=== PATIENT | male | born 1960 | race Caucasian/White ===

== ENCOUNTER 2023-09-15 15:21 | Emergency (ER) | payer OTHER, SELFPAY ==
[2023-09-15 15:24] VITALS: BP 180/87; PULSE 68; RESP 20; TEMP 35.8; O2SAT 98; BMI 42.5
--- NOTE | 2023-09-15 15:52 | CT_ITS ---
INDICATION: right flank pain EXAMINATION: CT Abdomen And Pelvis W/O Contrast Injection TECHNIQUE: Helically acquired images were obtained of the abdomen and pelvis without the use of IV contrast. A radiation dose optimization technique was used for this scan. Oral contrast: None. COMPARISON: None FINDINGS: Evaluation of the solid organs and vascular structures is limited without intravenous contrast. Visualized lung bases: Unremarkable Liver: Unremarkable Gallbladder: Unremarkable Spleen: Unremarkable Pancreas: Unremarkable Adrenal Glands: Unremarkable Kidneys: 4.2 cm simple cyst in the right upper renal pole. Status post left nephrectomy. Vasculature: Mild scattered aortoiliac atherosclerotic calcifications. GI Tract: Unremarkable Lymphadenopathy: None Peritoneum: No ascites. Bladder: Collapsed. Reproductive organs: Unremarkable Bones/Soft tissues: Mild scattered degenerative changes of the visualized spine. Moderately sized fat-containing periumbilical hernia. CT/Abdomen/Pelvis without Cont IMPRESSION: No acute abnormalities in the abdomen or pelvis. Specifically, no evidence of hydronephrosis or renal/ureteral stones. Moderately sized fat-containing periumbilical hernia. Status post left nephrectomy. Electronically Signed: Yash Echols MD at 18:02 EDT ,
--- NOTE | 2023-09-15 15:53 | EDS_ITS ---
HPI History of Present Illness Chief Complaint: Flank Pain Detail of Chief Complaint: Right flank pain Informant: patient Onset/Context/Timing Current Severity: 10/12 Narrative Narrative: Patient presents to the emergency department with complaint of right flank pain. Patient is visiting here from [place]. States that he has had right flank pain for about a week. Currently rates his pain an 8 out of 10. He describes some nausea but no vomiting. Denies fever. He had some mild dysuria with some dark urine. Patient states that he has had frequent kidney stones and had to have a left nephrectomy secondary to the kidney stones. Patient also states he cannot take Motrin or Toradol because of the nephrectomy. Patient states that the pain starts in his mid right back and radiates to the front of the abdomen. [facility] Medical History (Updated 09/15/23 @ 18:[address] Pantera Trejo, ) Anxiety Hypertension Dysplasia of one kidney Home Medications ?Medication ?Instructions ?Recorded ?Last Taken ?Type atenolol 50 mg tablet 50 mg PO DAILY 09/21/15 Unknown History hydrocodone-acetaminophen 5-325mg 1 - 2 tab PO Q4H PRN PRN Pain ##12 09/21/15 Unknown Rx 5mg-325mg naproxen 500 mg tablet 500 mg PO BID PRN #20 tabs 09/21/15 Unknown Rx cyclobenzaprine 10 mg tablet 10 mg PO TID PRN Muscle Spasm #20 09/15/23 Unknown Rx TABLETS hydrocodone-acetaminophen 5-325mg 1 tab PO Q4H PRN PRN Pain 2 days 09/15/23 Unknown Rx 5mg-325mg #10 TABLETS Allergy/AdvReac Type Severity Reaction Status Date / Time ketorolac (From Toradol) AdvReac Other Verified 09/15/23 15:23 Social History Smoking Status: Current every day smoker tobacco type: cigarettes ROS ROS ED Review of Systems ROS Unobtainable: other Constitutional Constitutional ED: Reports lethargy; Denies chills, fever(s), sweats or weight loss Eyes Eyes: Denies blurry vision, change in vision or diplopia ENT ENT ED: Denies rhinorrhea or sore throat Cardiovascular Cardiovascular: Denies chest pain, orthopnea or racing heartbeat Respiratory/Chest Respiratory/Chest: Denies cough, dyspnea, dyspnea on exertion, orthopnea or sputum Gastrointestinal Gastrointestinal: Reports abdominal pain; Denies diarrhea, nausea or vomiting Genitourinary Genitourinary ED: Denies dysuria, hematuria or urinary frequency Musculoskeletal Musculoskeletal: Reports back pain; Denies arthralgias, myalgias or neck pain Integumentary Denies abscess, Abrasions or rash Neurologic Neurologic: Denies headache(s) or weakness Psychiatric Psychiatric: Denies anxiety, depression or suicidal thoughts Endocrine Endocrinology: Denies polydipsia, polyphagia or polyuria Hematologic/Lymphatic Hematologic/Lymphatic: Denies easy bleeding, easy bruising or lymphadenopathy Allergic/Immunologic Allergic/Immunologic ED: Denies mouth swelling, tongue swelling or urticaria EXAM Physical Exam Const Vital Signs: 09/15/23 15:24 09/15/23 17:21 Temperature 96.5 F L Temperature Source Temporal Pulse Rate 68 56 L Respiratory Rate 20 H 18 Blood Pressure 180/87 H 187/94 H Blood Pressure Mean 118 125 Pulse Ox 98 96 Oxygen Delivery Method Room Air Room Air Positive well nourished and well developed General Appearance ED: well developed and NAD HEENT Reports TM's clear and moist mucous membranes normocephalic and atraumatic; Negative for trauma or tenderness Tympanic Membrane ED: Yes TM's clear Eyes PERRL and EOMs intact bilaterally General Eye ED: Negative for pale conjunctiva or scleral icterus Neck no lymphadenopathy, supple and no JVD General: Negative for tenderness Chest Wall inspection of chest normal and palpation of chest normal Chest: Negative for tenderness Resp normal respiratory effort and clear to auscultation bilaterally Effort and Inspection: Negative for respiratory distress or pain with movement Auscultation: Negative for rhonchi, wheezes or diminished lung sounds Cardio regular rate, regular rhythm, S1 normal heart sound, S2 normal heart sound and no murmurs Peripheral Pulses: pulses 2+ throughout GI normal to inspection, nondistended, normoactive bowel sounds, soft to palpation, non-distended and no masses GI Narrative: Mild tenderness palpation over the right upper and lower abdomen. There is no rebound, rigidity, or peritoneal signs. No mass palpated. Back/Spine no thoracic nor lumbar tenderness; Negative for no CVA tenderness Back/Spine Narrative: Patient with CVA tenderness on the right. Extremity normal to inspection General Extremety ED: Negative for edema General Extremity: Negative for edema Neuro oriented x3, CN's II-XII intact bilaterally, no sensory deficits noted and gait normal Sensorium / Orientation: awake, alert, oriented to person, oriented to place and oriented to time Motor Exam: strength 5/5 throughout and strength abnormal Psych mental status grossly normal Skin no rashes or lesions noted and no wounds MDM MDM MDM Narrative Medical decision making narrative: Patient presents with right flank pain with history of kidney stones. IV line will be established. Patient will be started on morphine and Zofran for pain. Will obtain basic labs as well as urinalysis and CT scan of the abdomen pelvis to evaluate further. CBC with differential obtained was normal. Chemistries unremarkable. BUN 17 and creatinine 1.38. Urinalysis unremarkable and no signs of infection. Patient had a CT flank that showed no evidence for kidney stone or significant acute process. He had a fat-containing umbilical hernia. While in department he received morphine and Zofran for pain. This point etiology of his flank pain unclear but suspect possibly musculoskeletal etiology. He will be given a prescription for Flexeril and a few [place] for pain. Advised to follow-up primary care physician on-call for no doc within the next 5 to 7 days. Patient will be going back to [place] in 2 weeks. Patient advised to return if worsening pain or condition worsening way Lab Data Labs: Laboratory Results - last 24 hr 09/15/23 09/15/23 16:15 17:15 WBC 7.4 RBC 4.93 Hgb 15.1 Hct 45.3 MCV 91.9 MCH 30.6 MCHC 33.3 RDW Std Deviation 44.8 H RDW Coeff of H[place] 13.3 Plt Count 154 MPV 11.1 Immature Gran % (Auto) 0.400 Neut % (Auto) 63.7 Lymph % (Auto) 26.1 Russell % (Auto) 6.0 Eos % (Auto) 3.1 Baso % (Auto) 0.7 Absolute Neuts (auto) 4.7 Absolute Lymphs (auto) 1.92 Nucleated RBC % 0 Sodium 136 Potassium 3.9 Chloride 107 Carbon Dioxide 26.0 Anion Gap 3 L BUN 17 Creatinine 1.38 H Estim Creat Clear Calc 76.21 Est GFR (MDRD) Af Amer 67 Est GFR (MDRD) Non-Af 56 L BUN/Creatinine Ratio 12.3 Glucose 152 H Calcium 9.3 Urine Color Yellow Urine Clarity Clear Urine pH 5.0 Ur Specific [place] 1.025 Urine Protein 30 H Urine Glucose (UA) Normal Urine Ketones 5 H Urine Occult Blood Negative Urine Nitrite Negative Urine Bilirubin Negative Urine Urobilinogen 8 H Ur Leukocyte Esterase 25 H Urine RBC 0 SEEN Urine WBC 0-5 SEEN Ur Squamous Epith Cells 0-5 SEEN Urine Bacteria 1+ Urine Mucus 0 SEEN Radiography Diagnostic Testing: Clinical Impression(s) from Imaging Studies Abdomen/Pelvis CT 09/15/23 15:52 IMPRESSION: No acute abnormalities in the abdomen or pelvis. Specifically, no evidence of hydronephrosis or renal/ureteral stones. Moderately sized fat-containing periumbilical hernia. Status post left nephrectomy. Electronically Signed: Yash Echols MD at 18:02 EDT , Discharge Plan Triage Chief Complaint: Flank Pain ED Provider: Pantera Trejo Dx/Rx/DC Orders Clinical Impression: Acute flank pain Instructions: ED Flank Pain, Uncertain Cause Prescriptions: New cyclobenzaprine 10 mg tablet 10 mg PO TID PRN (Reason: Muscle Spasm) Qty: 20 0RF hydrocodone-acetaminophen 5-325 mg tablet 1 tab PO Q4H PRN PRN (Reason: Pain) 2 Days Qty: 10 0RF No Action atenolol 50 MG tablet 50 mg PO DAILY hydrocodone-acetaminophen 1 TABLET tablet 1 - 2 tab PO Q4H PRN PRN (Reason: Pain) Qty: 12 0RF naproxen 500 MG tablet 500 mg PO BID PRN Qty: 20 0RF Primary Care Provider: LEAH MOORE Referrals: LEAH MOORE [Other] David Arevalo MD [Med Staff - Educational Technologist] - 5-7 Days Print Language: Afghan Disposition Disposition: Home, Self Care
[2023-09-15] MEDS: Ondansetron 4 MG/2 ML Vial IV (16:05)
[2023-09-15] MEDS: Morphine 4 MG/ML Syringe IV (16:06)
[2023-09-15] MEDS: 0.9% Normal Saline (1000mL) 1,000 ML 150 ML IV (16:12)
[2023-09-15 16:26] LABS: Absolute Lymphocyte Count 1.92 X10^3/uL (0.83-4.51); Absolute Neutrophil Count 4.7 X10^3/uL (2.0-7.7); Basophil# 0.05 X10^3/uL; Basophil% 0.7 % (0-1); Eosinophil# 0.23 X10^3/uL; Eosinophils% 3.1 % (0-5); Hematocrit 45.3 % (40-54); Hemoglobin 15.1 g/dL (13.0-16.5); Lymphocyte # 1.92 X10^3/ul (0.83-4.51); Lymphocyte % 26.1 % (19-41); Mean Corp Hgb Conc 33.3 g/dL (32-36); Mean Corpuscular Hgb 30.6 pg (27.0-32.0); Mean Corpuscular Volume 91.9 fL (80-94); Mean Platelet Vol. 11.1 fl (6.2-12.0); Monocyte# 0.44 X10^3/uL; NRBC Flagged by Analyzer 0 % (0-5); Neutrophil # 4.69 X10^3/uL (2.7-7.7); Neutrophil % 63.7 % (47-70); Platelet Count 154 K/mm3 (150-450); RBC Distribution Width CV 13.3 % (11.6-14.6); RBC Distribution Width SD 44.8 fl (35.1-43.9); Red Blood Count 4.93 M/mm3 (4.6-6.2); White Blood Count 7.4 K/mm3 (4.4-11.0)
[2023-09-15 16:41] LABS: Anion Gap 3 (5-15); BUN 17 mg/dL (7-18); BUN/Creat Ratio 12.3 RATIO (10-20); Calcium,Total 9.3 mg/dL (8.5-10.1); Chloride 107 mmol/L (98-107); Creatinine, Serum 1.38 mg/dL (0.70-1.30); EST Glomerular Filtration Rate 56 mL/min (>60); Est Glom Filt Rate - Afr Amer 67 mL/min (>60); Estimated Creatinine Clearance 76.21 ml/min; Glucose 152 mg/dL (74-106); Potassium 3.9 mmol/L (3.5-5.1); Sodium Level 136 mmol/L (136-145)
[2023-09-15 17:16] LABS: Mucous, Urine 0 SEEN /hpf (<or=2+); Red Blood Cells-Urine 0 SEEN /hpf (0-5)
[2023-09-15 17:21] VITALS: BP 187/94; PULSE 56; RESP 18; O2SAT 96
[2023-09-15 17:26] LABS: Color, Urine Yellow (Yellow); Glucose, Dipstick Normal (Normal); Ketone-Dipstick 5 mg/dl (Negative); Leukocyte Esterase-Dipstick 25 /ul (Negative); Nitrite-Dipstick Negative (Negative); Occult Blood-Urine Negative /ul (Negative); Protein-Dipstick 30 mg/dl (Negative); Specific Gravity, Urine 1.025 (1.002-1.030); Urine Bilirubin Dipstick Negative (Negative); Urine Clarity Clear (Clear); Urine Urobilinogen 8 mg/dl (Normal)
[2023-09-15 17:32] LABS: Bacteria 1+ /hpf (None Seen); Squamous Epithelial Cells - UA 0-5 SEEN /hpf (0-5); White Blood Cells 0-5 SEEN /hpf (0-5)
[2023-09-15 18:32] VITALS: BP 165/70; PULSE 60; RESP 18; TEMP 36.1; O2SAT 97
== END 2023-09-15 18:36 | disposition home or self-care (01) ==
PROVIDERS: Emergency Provider Emergency Medicine; Visit Provider Emergency Medicine
DX: R10.11 Right upper quadrant pain (principal); R10.31 Right lower quadrant pain; I10 Essential (primary) hypertension; F17.210 Nicotine dependence, cigarettes, uncomplicated; Z90.5 Acquired absence of kidney; Z79.899 Other long term (current) drug therapy; Z87.442 Personal history of urinary calculi
CPT/HCPCS: 74176; 80048; 81001; 85025; 96361; 96374; 96375; 99283; J7030; J2405